=== PATIENT | female | born 1965 | race Caucasian/White ===

== ENCOUNTER 2023-09-19 08:43 | Emergency (ER) | payer BC ==
[~2023-09-19] VITALS: Ht 157.5 cm; Wt 113.0 kg
[2023-09-19] MEDS: ondansetron/PF 4mg/2ml inj IV ONE (09:37)
[2023-09-19] MEDS: acetaminophen 1,000mg/100ml IV 100 ML IV STA (09:37)
[2023-09-19 09:56] LABS: EOSINOPHILS # (AUTO) 0.1 X10'3 (0-0.9); LYMPHOCYTES # (AUTO) 0.9 X10'3 (1.1-4.8); MEAN CORPUSCULAR HGB CONC 32.9 g/dL (33.0-36.5); NEUTROPHILS # (AUTO) 3.1 X10'3 (1.8-7.7)
[2023-09-19 09:58] LABS: BASOPHILS % (AUTO) 0.3 % (0-1); EOSINOPHILS % (AUTO) 1.5 % (0-6); HEMATOCRIT 38.3 % (35.0-45.0); HEMOGLOBIN 12.6 g/dl (12.0-16.0); LYMPHOCYTES % (AUTO) 22.6 % (21-51); MEAN CORPUSCULAR HEMOGLOBIN 28.8 PG (27.0-31.0); MEAN CORPUSCULAR VOLUME 87.6 FL (78-98); MEAN PLATELET VOLUME 8.8 FL (7.4-10.4); MONOCYTES % (AUTO) 0.7 % (2-12); NEUTROPHILS % (AUTO) 74.9 % (42-75); PLATELET COUNT 226 X10'3 (140-440); RED BLOOD COUNT 4.38 X10'6 (4.20-5.60); RED CELL DISTRIBUTION WIDTH 14.1 % (11.5-14.5); WHITE BLOOD COUNT 4.1 X10'3 (4.5-11.0)
[2023-09-19 10:05] LABS: ALBUMIN 3.2 G/DL (3.4-5.0); ANION GAP 5 (8-16); BLOOD UREA NITROGEN 14 MG/DL (7-18); BUN/CREATININE RATIO 18.4 (10.0-20.0); CALCIUM 8.3 MG/DL (8.5-10.1); CHLORIDE 99 MMOL/L (99-107); CREATININE 0.76 MG/DL (0.40-0.90); GLUCOSE 108 MG/DL (70-104); POTASSIUM 3.6 MMOL/L (3.5-5.1); SODIUM 133 MMOL/L (135-145); TOTAL CARBON DIOXIDE 28.6 MMOL/L (24-32); eCRCL 65 ML/MIN; eGFR 79 ML/MIN
[2023-09-19 10:30] LABS: PRO BRAIN NATRIURETIC PEPTIDE 70 PG/ML (0-125)
[2023-09-19 10:49] LABS: OCCULT BLOOD STOOL POSITIVE (Neg)
[2023-09-19 11:08] VITALS: BP 122/87; PULSE 91; RESP 15; TEMP 98.8; O2SAT 99
== END 2023-09-19 11:17 | disposition home or self-care (01) ==
LOC: ER 08:44
DX: K64.9 Unspecified hemorrhoids (principal); R51.9 Headache, unspecified; I10 Essential (primary) hypertension; Z90.710 Acquired absence of both cervix and uterus; Z85.3 Personal history of malignant neoplasm of breast; Z91.040 Latex allergy status
CPT/HCPCS: 36415; 71045; 80048; 82272; 83880; 84484; 85025; 86885; 86900; 86901; 93005; 96374; 96375; 99285; J0131; J2405; 96365